=== PATIENT | female | born 1965 | race Caucasian/White ===

== ENCOUNTER 2017-12-27 18:59 | Inpatient (IN) | payer MEDICAID ==
[~2017-12-27] VITALS: Ht 167.6 cm; Wt 75.0 kg
[~2017-12-27 18:59] MED LIST: ALBU8.5H8 IH; BAC10T PO; CETI1TAB PO; GABA-338 PO; HYDR12.522 PO; HYDR25TA4 PO; IBUP-1051 PO; LISI-600 PO; PSEU-259 PO
[2017-12-27] MEDS ORDERED: normal saline 1000ML IV soln IV ONE (19:35)
[2017-12-27] MEDS: vancomycin/NS 1 GM ADD-VANTAGE 250 ML IV ONE ×2 (19:35→20:50)
[2017-12-27] MEDS ORDERED: levoFLOXACIN-Levaquin 750MG/D5 150 ML IV ONE (19:35)
[2017-12-27 20:01] LABS: BASOPHILS % (AUTO) 0.2 % (0-1); EOSINOPHILS % (AUTO) 0 % (0-6); HEMOGLOBIN 13.2 g/dl (12.0-16.0); LYMPHOCYTES # (AUTO) 0.7 X10'3 (1.1-4.8); LYMPHOCYTES % (AUTO) 4.2 % (21-51); MEAN CORPUSCULAR HEMOGLOBIN 30.3 PG (27.0-31.0); MEAN CORPUSCULAR HGB CONC 33.9 % (33.0-36.5); MEAN CORPUSCULAR VOLUME 89.4 FL (78-98); MEAN PLATELET VOLUME 8.2 FL (7.4-10.4); MONOCYTES # (AUTO) 0.8 X10'3 (0-0.9); MONOCYTES % (AUTO) 4.6 % (2-12); NEUTROPHILS # (AUTO) 15.5 X10'3 (1.8-7.7); PLATELET COUNT 211 X10'3 (140-440); RED BLOOD COUNT 4.37 X10'6 (4.20-5.60); RED CELL DISTRIBUTION WIDTH 12.7 % (11.5-14.5)
[2017-12-27 20:13] LABS: ALANINE AMINOTRANSFERASE 36 U/L (12-78); ALBUMIN/GLOBULIN RATIO 0.9 (1.1-1.5); ALKALINE PHOSPHATASE 141 IU/L (46-116); ANION GAP 9 (8-16); ASPARTATE AMINO TRANSFERASE 15 U/L (10-37); BILIRUBIN,TOTAL 0.4 MG/DL (0.1-1.0); BLOOD UREA NITROGEN 16 MG/DL (7-18); BUN/CREATININE RATIO 19.5 (6.6-38.0); CHLORIDE 97 MMOL/L (99-107); CREATININE 0.82 MG/DL (0.40-0.90); GLUCOSE 105 MG/DL (70-104); MAGNESIUM 1.6 MG/DL (1.5-2.4); POTASSIUM 3.1 MMOL/L (3.5-5.1); SODIUM 135 MMOL/L (135-145); TOTAL CARBON DIOXIDE 28.7 MMOL/L (24-32); TOTAL PROTEIN 6.5 G/DL (6.4-8.2); eGFR 73 ML/MIN
[2017-12-27 20:19] LABS: PARTIAL THROMBOPLASTIN TIME 38 SECONDS (22-32)
[2017-12-27 20:30] LABS: URINE HCG NEGATIVE (NEG)
[2017-12-27 20:32] LABS: CLARITY,URINE CLOUDY (Clear); COLOR,URINE YELLOW (Yellow); GLUCOSE, URINE NEGATIVE (Neg); KETONES,URINE 15 mg/dl (Neg); LEUKOCYTE ESTERASE ,URINE SMALL (Neg); NITRITES, URINE POSITIVE (Neg); OCCULT BLOOD,URINE MODERATE (Neg); PROTEIN,URINE 100 mg/dl (Neg); UROBILINOGEN,URINE 0.2 E.U/dL (0.2-1.0)
[2017-12-27 20:40] LABS: UA COLLECTION TYPE CLN CATCH MIDSTREAM
[2017-12-27 20:41] LABS: BACTERIA,URINE 4+ /HPF (Neg); SQUAMOUS EPITHELIAL CELL,UR FEW /LPF (FEW); WBC,URINE 20-30 /HPF (0-4)
[2017-12-27] MEDS ORDERED: temazepam 15mg capsule PO PRN (21:00)
[2017-12-27] MEDS ORDERED: vancomycin/NS 1 GM ADD-VANTAGE 250 ML IV ONE (21:00)
[2017-12-27] MEDS ORDERED: normal saline 1000ml 1,000 ML IVB ONE (21:18)
[2017-12-27] MEDS ORDERED: HYDROcodone/acetaminophen 5mg/325mg tablet PO PRN (21:20)
[2017-12-27] MEDS ORDERED: acetaminophen 650mg rectal suppository RC PRN (21:20)
[2017-12-27] MEDS ORDERED: magnesium hydroxide 30ml (MOM) UD suspension PO PRN (21:20)
[2017-12-27] MEDS ORDERED: morphine 2 MG/ML inj. syringe IV PRN ×2 (21:20)
[2017-12-27] MEDS ORDERED: mag hydrox/Alum hydrox/simeth 30ml oral suspension PO PRN (21:20)
[2017-12-27] MEDS ORDERED: metoclopramide 5 mg/ml inj IV PRN (21:20)
[2017-12-27] MEDS ORDERED: acetaminophen 325mg tablet PO PRN (21:20)
[2017-12-27] MEDS ORDERED: potassium Cl 40MEQ/NS 500ml 500 ML IV PRN ×2 (21:20)
[2017-12-27] MEDS ORDERED: diphenhydrAMINE 50 mg/ml inj IV PRN (21:20)
[2017-12-27] MEDS ORDERED: potassium Cl 20 mEq SR tablet PO PRN (21:20)
[2017-12-27] MEDS ORDERED: ondansetron/PF 4mg/2ml inj IV PRN (21:20)
[2017-12-27] MEDS ORDERED: bisacodyl 10mg suppository rectal RC PRN (21:20)
[2017-12-27] MEDS ORDERED: diphenhydrAMINE 25mg capsule PO PRN (21:20)
[2017-12-27] MEDS ORDERED: HYDROmorphone 1 mg/ml syringe IV PRN ×2 (21:20)
[2017-12-27] MEDS ORDERED: HYDROcodone/acetaminophen 10/325mg tab PO PRN (21:20)
[2017-12-27 21:44] LABS: D-DIMER 0.79 MG/L FEU (0-0.50)
[2017-12-27 21:56] LABS: LIPASE 51 U/L (73-393); PHOSPHORUS 3.2 MG/DL (2.3-4.5)
[2017-12-27] MEDS: nicotine 21mg patch - 24 hr TD SCH (22:26)
[2017-12-27] MEDS ORDERED: normal saline 500ml IV soln 500 ML IV ONE (22:45)
[2017-12-27 22:50] VITALS: BP 130/82
[2017-12-28] MEDS: potassium Cl 20 mEq SR tablet PO PRN (00:04)
[2017-12-28] MEDS: potassium Cl 20mEq in NS 1,000 ML IV SCH ×4 (01:50→23:26)
[2017-12-28] MEDS ORDERED: albuterol 2.5 MG/3 ML nebule NEB PRN (01:55)
[2017-12-28 05:14] LABS: BASOPHILS % (AUTO) 0.2 % (0-1); EOSINOPHILS % (AUTO) 0.4 % (0-6); HEMATOCRIT 33.6 % (35.0-45.0); HEMOGLOBIN 11.6 g/dl (12.0-16.0); LYMPHOCYTES # (AUTO) 1.7 X10'3 (1.1-4.8); LYMPHOCYTES % (AUTO) 14.4 % (21-51); MEAN CORPUSCULAR HEMOGLOBIN 31.3 PG (27.0-31.0); MEAN CORPUSCULAR HGB CONC 34.7 % (33.0-36.5); MEAN CORPUSCULAR VOLUME 90.4 FL (78-98); MONOCYTES # (AUTO) 0.6 X10'3 (0-0.9); MONOCYTES % (AUTO) 4.8 % (2-12); NEUTROPHILS # (AUTO) 9.6 X10'3 (1.8-7.7); NEUTROPHILS % (AUTO) 80.2 % (42-75); PLATELET COUNT 178 X10'3 (140-440); RED BLOOD COUNT 3.72 X10'6 (4.20-5.60); RED CELL DISTRIBUTION WIDTH 12.8 % (11.5-14.5); WHITE BLOOD COUNT 11.9 X10'3 (4.5-11.0)
[2017-12-28 05:30] LABS: ALANINE AMINOTRANSFERASE 27 U/L (12-78); ALBUMIN 2.3 G/DL (3.4-5.0); ALBUMIN/GLOBULIN RATIO 0.8 (1.1-1.5); ALKALINE PHOSPHATASE 115 IU/L (46-116); ANION GAP 10 (8-16); ASPARTATE AMINO TRANSFERASE 14 U/L (10-37); BILIRUBIN,TOTAL 0.5 MG/DL (0.1-1.0); BLOOD UREA NITROGEN 9 MG/DL (7-18); BUN/CREATININE RATIO 15.3 (6.6-38.0); CALCIUM 8.4 MG/DL (8.5-10.1); CHLORIDE 108 MMOL/L (99-107); CREATININE 0.59 MG/DL (0.40-0.90); GLUCOSE 100 MG/DL (70-104); POTASSIUM 3.1 MMOL/L (3.5-5.1); SODIUM 144 MMOL/L (135-145); TOTAL CARBON DIOXIDE 26.2 MMOL/L (24-32); TOTAL PROTEIN 5.3 G/DL (6.4-8.2); eGFR > 90 ML/MIN
[2017-12-28] MEDS ORDERED: potassium Cl 20 mEq SR tablet PO STA (05:56)
[2017-12-28 07:00] VITALS: BP 135/85
[2017-12-28] MEDS ORDERED: buprenorphine/naloxone 2-0.5mg sublingual tablet SL ONE (07:35)
[2017-12-28] MEDS: heparin, porcine 5000 units/ml vial SQ SCH ×2 (07:46→19:22)
[2017-12-28] MEDS: nicotine 21mg patch - 24 hr TD SCH (07:47)
[2017-12-28] MEDS: K and/or MAG REPLACEMENT MC SCH (08:00)
[2017-12-28] MEDS: docusate sod 100mg capsule PO SCH ×2 (08:00→19:23)
[2017-12-28] MEDS ORDERED: levoFLOXACIN-Levaquin 750MG/D5 150 ML IV SCH (08:00)
[2017-12-28 10:24] LABS: URINE AMPHETAMINE SCREEN POSITIVE (Neg); URINE BARBITUATE SCREEN NEGATIVE (Neg); URINE BENZODIAZEPINES SCREEN NEGATIVE (Neg); URINE CANNABINOID SCREEN POSITIVE (Neg); URINE COCAINE SCREEN NEGATIVE (Neg); URINE METHADONE SCREEN NEGATIVE (Neg); URINE OPIATE SCREEN POSITIVE (Neg); URINE PHENCYCLIDINE SCREEN NEGATIVE (Neg)
[2017-12-28 11:53] VITALS: BP 134/95
[2017-12-28] MEDS: buprenorphine/naloxone 2-0.5mg sublingual tablet SL SCH ×2 (17:00→19:22)
[2017-12-28] MEDS ORDERED: hydrOXYzine 25 MG tablet PO PRN (17:00)
[2017-12-28 18:30] VITALS: BP 177/109
[2017-12-28] MEDS ORDERED: ibuprofen 200mg tablet PO PRN (18:30)
[2017-12-28] MEDS: lactobacillus rhamnosus 10,000 MMU CELLS/CAPSULE PO SCH (19:22)
[2017-12-28 19:45] VITALS: BP 163/95
[2017-12-28] MEDS ORDERED: cloNIDine 0.1 mg tablet PO PRN (20:25)
[2017-12-28] MEDS: LORazepam 1 MG tablet PO PRN (20:51)
[2017-12-28 23:17] VITALS: BP 182/105
[2017-12-29] VITALS: BP 160/96
[2017-12-29 04:08] VITALS: BP 116/74
[2017-12-29 04:27] LABS: BASOPHILS % (AUTO) 0.5 % (0-1); EOSINOPHILS # (AUTO) 0.2 X10'3 (0-0.9); EOSINOPHILS % (AUTO) 3.2 % (0-6); HEMATOCRIT 36.8 % (35.0-45.0); LYMPHOCYTES # (AUTO) 2.5 X10'3 (1.1-4.8); LYMPHOCYTES % (AUTO) 36.4 % (21-51); MEAN CORPUSCULAR HEMOGLOBIN 29.5 PG (27.0-31.0); MEAN CORPUSCULAR HGB CONC 32.6 % (33.0-36.5); MEAN CORPUSCULAR VOLUME 90.4 FL (78-98); MEAN PLATELET VOLUME 8.1 FL (7.4-10.4); MONOCYTES # (AUTO) 0.5 X10'3 (0-0.9); MONOCYTES % (AUTO) 7.8 % (2-12); NEUTROPHILS # (AUTO) 3.5 X10'3 (1.8-7.7); NEUTROPHILS % (AUTO) 52.1 % (42-75); PLATELET COUNT 241 X10'3 (140-440); RED BLOOD COUNT 4.07 X10'6 (4.20-5.60); RED CELL DISTRIBUTION WIDTH 13.7 % (11.5-14.5); WHITE BLOOD COUNT 6.7 X10'3 (4.5-11.0)
[2017-12-29 04:43] LABS: ALANINE AMINOTRANSFERASE 25 U/L (12-78); ALBUMIN 2.2 G/DL (3.4-5.0); ALBUMIN/GLOBULIN RATIO 0.7 (1.1-1.5); ALKALINE PHOSPHATASE 111 IU/L (46-116); ANION GAP 9 (8-16); ASPARTATE AMINO TRANSFERASE 14 U/L (10-37); BILIRUBIN,TOTAL 0.3 MG/DL (0.1-1.0); BLOOD UREA NITROGEN 8 MG/DL (7-18); BUN/CREATININE RATIO 11.4 (6.6-38.0); CALCIUM 8.7 MG/DL (8.5-10.1); CHLORIDE 109 MMOL/L (99-107); GLUCOSE 86 MG/DL (70-104); POTASSIUM 3.4 MMOL/L (3.5-5.1); SODIUM 144 MMOL/L (135-145); TOTAL CARBON DIOXIDE 26.1 MMOL/L (24-32); TOTAL PROTEIN 5.2 G/DL (6.4-8.2); eGFR 88 ML/MIN
[2017-12-29 05:33] VITALS: BP 158/91
[2017-12-29 06:00] VITALS: BP 152/90
[2017-12-29] MEDS: K and/or MAG REPLACEMENT MC SCH (07:02)
[2017-12-29] MEDS: buprenorphine/naloxone 2-0.5mg sublingual tablet SL SCH (07:55)
[2017-12-29] MEDS: lactobacillus rhamnosus 10,000 MMU CELLS/CAPSULE PO SCH (07:56)
[2017-12-29] MEDS: potassium Cl 20 mEq SR tablet PO PRN ×2 (07:56→12:48)
[2017-12-29] MEDS: docusate sod 100mg capsule PO SCH (07:57)
[2017-12-29] MEDS: heparin, porcine 5000 units/ml vial SQ SCH (07:59)
[2017-12-29] MEDS: nicotine 21mg patch - 24 hr TD SCH (07:59)
[2017-12-29] MEDS ORDERED: CefTRIAXone 2gm/D5W 50ml 50 ML IV SCH (08:00)
[2017-12-29] MEDS: LORazepam 1 MG tablet PO PRN (08:14)
[2017-12-29 12:16] VITALS: BP 149/94
[2017-12-29] MEDS ORDERED: LEVO750T46 PO (13:15)
[2017-12-29] MEDS ORDERED: NICO-731 TD (13:16)
== END 2017-12-29 18:26 | disposition home or self-care (01) | DRG 720 ==
LOC: ER 19:01 → ED HOLD 21:19 → SUR 3N 22:50
PROVIDERS: ADMIT Family Medicine; ATTEND Family Medicine
DX: A41.9 Sepsis, unspecified organism (principal); J18.1 Lobar pneumonia, unspecified organism; K76.0 Fatty (change of) liver, not elsewhere classified; B96.20 Unspecified Escherichia coli [E. coli] as the cause of diseases classified elsewhere; E87.6 Hypokalemia; F11.23 Opioid dependence with withdrawal; F17.210 Nicotine dependence, cigarettes, uncomplicated; F41.9 Anxiety disorder, unspecified; I10 Essential (primary) hypertension; N39.0 Urinary tract infection, site not specified; R91.1 Solitary pulmonary nodule; Z86.14 Personal history of Methicillin resistant Staphylococcus aureus infection; Z91.018 Allergy to other foods; Z88.7 Allergy status to serum and vaccine; Z79.899 Other long term (current) drug therapy; Z56.0 Unemployment, unspecified
CPT/HCPCS: 36415; 71045; 71250; 74176; 80053; 80305; 81001; 81025; 83605; 83690; 83735; 83880; 84100; 84145; 84439; 84443; 84480; 84484; 85025; 85379; 85610; 85730; 87040; 87070; 87077; 87088; 87186; 93005; 93306; 94760; 99285; J0696; J1644; J1956; J3370; J7030; Q0177

== ENCOUNTER 2018-02-04 15:22 | Emergency (ER) | payer MEDICAID ==
[~2018-02-04] VITALS: Ht 167.6 cm; Wt 73.0 kg
[~2018-02-04 15:22] MED LIST changes: -ALBU8.5H8 IH; -BAC10T PO; -CETI1TAB PO; -GABA-338 PO; -HYDR12.522 PO; +NICO-731 TD; -PSEU-259 PO
[2018-02-04 15:35] VITALS: BP 157/100
[2018-02-04] MEDS ORDERED: SULF1TAB49 PO (16:25)
[2018-02-04] MEDS ORDERED: CEPH-572 PO (16:25)
[2018-02-04] MEDS ORDERED: TRAM50TA2 PO (16:26)
[2018-02-04] MEDS ORDERED: sulfamethoxazole/trimethoprim DS (800/160mg) tablet PO ONE (16:35)
[2018-02-04] MEDS ORDERED: cephalexin 250mg capsule PO ONE (16:35)
== END 2018-02-04 17:01 | disposition home or self-care (01) ==
LOC: ER 15:26
DX: L03.113 Cellulitis of right upper limb (principal); F11.90 Opioid use, unspecified, uncomplicated; Z79.2 Long term (current) use of antibiotics; Z79.899 Other long term (current) drug therapy; Z86.14 Personal history of Methicillin resistant Staphylococcus aureus infection; Z56.0 Unemployment, unspecified
CPT/HCPCS: 99283

== ENCOUNTER 2018-02-07 20:27 | Inpatient (IN) | payer MEDICAID ==
[~2018-02-07] VITALS: Ht 167.6 cm; Wt 68.2 kg
[~2018-02-07 20:27] MED LIST changes: +CEPH-572 PO; +SULF1TAB49 PO; +TRAM50TA2 PO
[2018-02-07] MEDS ORDERED: normal saline 1000ML IV soln IVB ONE (23:05)
[2018-02-08 00:12] LABS: BASOPHILS % (AUTO) 0.2 % (0-1); EOSINOPHILS # (AUTO) 0.4 X10'3 (0-0.9); EOSINOPHILS % (AUTO) 3.9 % (0-6); HEMATOCRIT 42.2 % (35.0-45.0); INR 0.9 INR; LYMPHOCYTES # (AUTO) 2.7 X10'3 (1.1-4.8); LYMPHOCYTES % (AUTO) 24.8 % (21-51); MEAN CORPUSCULAR HEMOGLOBIN 29.7 PG (27.0-31.0); MEAN CORPUSCULAR HGB CONC 33.2 % (33.0-36.5); MEAN CORPUSCULAR VOLUME 89.3 FL (78-98); MEAN PLATELET VOLUME 8.1 FL (7.4-10.4); MONOCYTES # (AUTO) 0.7 X10'3 (0-0.9); MONOCYTES % (AUTO) 6.2 % (2-12); NEUTROPHILS % (AUTO) 64.9 % (42-75); PARTIAL THROMBOPLASTIN TIME 31 SECONDS (22-32); PLATELET COUNT 275 X10'3 (140-440); PROTHROMBIN TIME 9.4 SECONDS (9.0-12.0); RED BLOOD COUNT 4.72 X10'6 (4.20-5.60); RED CELL DISTRIBUTION WIDTH 14.3 % (11.5-14.5); WHITE BLOOD COUNT 10.7 X10'3 (4.5-11.0)
[2018-02-08 00:24] LABS: ALANINE AMINOTRANSFERASE 22 U/L (12-78); ALBUMIN 3.2 G/DL (3.4-5.0); ALBUMIN/GLOBULIN RATIO 0.9 (1.1-1.5); ALKALINE PHOSPHATASE 124 IU/L (46-116); ANION GAP 7 (8-16); ASPARTATE AMINO TRANSFERASE 12 U/L (10-37); BILIRUBIN,TOTAL 0.2 MG/DL (0.1-1.0); BLOOD UREA NITROGEN 16 MG/DL (7-18); CALCIUM 9.8 MG/DL (8.5-10.1); CHLORIDE 100 MMOL/L (99-107); CREATININE 0.94 MG/DL (0.40-0.90); GLUCOSE 84 MG/DL (70-104); POTASSIUM 4.4 MMOL/L (3.5-5.1); SODIUM 136 MMOL/L (135-145); TOTAL CARBON DIOXIDE 28.8 MMOL/L (24-32); TOTAL PROTEIN 6.9 G/DL (6.4-8.2); eGFR 63 ML/MIN
[2018-02-08 00:28] LABS: D-DIMER 0.75 MG/L FEU (0-0.50)
[2018-02-08 00:40] LABS: URINE AMPHETAMINE SCREEN POSITIVE (Neg); URINE BARBITUATE SCREEN NEGATIVE (Neg); URINE BENZODIAZEPINES SCREEN NEGATIVE (Neg); URINE CANNABINOID SCREEN NEGATIVE (Neg); URINE COCAINE SCREEN NEGATIVE (Neg); URINE METHADONE SCREEN NEGATIVE (Neg); URINE OPIATE SCREEN POSITIVE (Neg); URINE PHENCYCLIDINE SCREEN NEGATIVE (Neg)
[2018-02-08] MEDS ORDERED: normal saline 1000ML IV soln IVB ONE (00:50)
[2018-02-08] MEDS ORDERED: vancomycin/NS 1 GM ADD-VANTAGE 250 ML IV ONE (00:50)
[2018-02-08] MEDS ORDERED: piperacillin/tazo 3.375gm/50ml 50 ML IV ONE (00:50)
[2018-02-08] MEDS: normal saline 1000ml 1,000 ML IV SCH ×3 (02:17→23:14)
[2018-02-08] MEDS ORDERED: bisacodyl 10mg suppository rectal RC PRN (02:20)
[2018-02-08] MEDS ORDERED: magnesium hydroxide 30ml (MOM) UD suspension PO PRN (02:20)
[2018-02-08] MEDS ORDERED: morphine 2 MG/ML inj. syringe IV PRN (02:20)
[2018-02-08] MEDS ORDERED: acetaminophen 325mg tablet PO PRN ×2 (02:20)
[2018-02-08] MEDS ORDERED: mag hydrox/Alum hydrox/simeth 30ml oral suspension PO PRN (02:20)
[2018-02-08] MEDS ORDERED: diphenhydrAMINE 25mg capsule PO PRN (02:20)
[2018-02-08] MEDS ORDERED: ondansetron/PF 4mg/2ml inj IV PRN (02:20)
[2018-02-08] MEDS ORDERED: diphenhydrAMINE 50 mg/ml inj IV PRN (02:20)
[2018-02-08] MEDS ORDERED: metoclopramide 5 mg/ml inj IV PRN (02:20)
[2018-02-08] MEDS: HYDROmorphone 1 mg/ml syringe IV PRN ×5 (05:10→21:41)
[2018-02-08] MEDS ORDERED: tetanus & diphtheria toxoid (Td) vaccine 0.5ml IMVAC ONE (06:10)
[2018-02-08] MEDS ORDERED: TETanus/Pertussis (Acell)/Diphther VAC/PF (Tdap-Adult) 0.5ml syringe IMVAC ONE (06:15)
[2018-02-08] MEDS: traMADol 50MG tablet PO SCH ×3 (09:19→21:33)
[2018-02-08] MEDS: piperacillin/tazo 4.5gm/100ml 100 ML IV SCH ×2 (09:19→17:31)
[2018-02-08] MEDS: pantoprazole 40mg Tablet.DR PO SCH (09:20)
[2018-02-08] MEDS: nicotine 21mg patch - 24 hr TD SCH (09:20)
[2018-02-08] MEDS: docusate sod 100mg capsule PO SCH ×2 (09:20→21:33)
[2018-02-08] MEDS: lisinopril 20mg tablet PO SCH (09:20)
[2018-02-08] MEDS ORDERED: vancomycin/NS 1 GM ADD-VANTAGE 250 ML IV SCH (12:00)
[2018-02-08] MEDS: vancomycin/NS 1 GM ADD-VANTAGE 250 ML IV SCH (13:16)
[2018-02-08 18:00] VITALS: BP 139/95
[2018-02-08] MEDS ORDERED: temazepam 15mg capsule PO PRN (21:00)
[2018-02-08] MEDS: heparin, porcine 5000 units/ml vial SQ SCH (21:34)
[2018-02-08 22:00] VITALS: BP 120/70
[2018-02-09] MEDS: piperacillin/tazo 4.5gm/100ml 100 ML IV SCH ×3 (01:03→15:36)
[2018-02-09] MEDS: traMADol 50MG tablet PO SCH ×4 (01:51→20:22)
[2018-02-09] MEDS: HYDROmorphone 1 mg/ml syringe IV PRN ×4 (01:52→23:32)
[2018-02-09] MEDS: vancomycin/NS 1 GM ADD-VANTAGE 250 ML IV SCH (02:29)
[2018-02-09 06:00] VITALS: BP 139/77
[2018-02-09 06:49] LABS: BASOPHILS % (AUTO) 0.3 % (0-1); EOSINOPHILS # (AUTO) 0.3 X10'3 (0-0.9); EOSINOPHILS % (AUTO) 4.4 % (0-6); HEMOGLOBIN 11.8 g/dl (12.0-16.0); LYMPHOCYTES % (AUTO) 31.3 % (21-51); MEAN CORPUSCULAR HEMOGLOBIN 29.1 PG (27.0-31.0); MEAN CORPUSCULAR HGB CONC 32.6 % (33.0-36.5); MEAN CORPUSCULAR VOLUME 89.3 FL (78-98); MEAN PLATELET VOLUME 8.3 FL (7.4-10.4); MONOCYTES # (AUTO) 0.4 X10'3 (0-0.9); MONOCYTES % (AUTO) 6.7 % (2-12); NEUTROPHILS # (AUTO) 3.6 X10'3 (1.8-7.7); NEUTROPHILS % (AUTO) 57.3 % (42-75); PLATELET COUNT 245 X10'3 (140-440); RED BLOOD COUNT 4.04 X10'6 (4.20-5.60); RED CELL DISTRIBUTION WIDTH 14.5 % (11.5-14.5); WHITE BLOOD COUNT 6.3 X10'3 (4.5-11.0)
[2018-02-09 07:00] LABS: ALANINE AMINOTRANSFERASE 20 U/L (12-78); ALBUMIN 2.4 G/DL (3.4-5.0); ALBUMIN/GLOBULIN RATIO 0.9 (1.1-1.5); ALKALINE PHOSPHATASE 99 IU/L (46-116); ANION GAP 8 (8-16); ASPARTATE AMINO TRANSFERASE 14 U/L (10-37); BILIRUBIN,TOTAL 0.3 MG/DL (0.1-1.0); BLOOD UREA NITROGEN 15 MG/DL (7-18); BUN/CREATININE RATIO 22.4 (6.6-38.0); CALCIUM 8.6 MG/DL (8.5-10.1); CHLORIDE 108 MMOL/L (99-107); CREATININE 0.67 MG/DL (0.40-0.90); GLUCOSE 97 MG/DL (70-104); POTASSIUM 3.8 MMOL/L (3.5-5.1); SODIUM 141 MMOL/L (135-145); TOTAL CARBON DIOXIDE 25.1 MMOL/L (24-32); eGFR > 90 ML/MIN
[2018-02-09] MEDS: heparin, porcine 5000 units/ml vial SQ SCH ×2 (08:00→20:00)
[2018-02-09] MEDS: normal saline 1000ml 1,000 ML IV SCH ×2 (08:17→13:33)
[2018-02-09] MEDS: pantoprazole 40mg Tablet.DR PO SCH (08:29)
[2018-02-09] MEDS: docusate sod 100mg capsule PO SCH ×2 (08:29→20:00)
[2018-02-09] MEDS: lisinopril 20mg tablet PO SCH (08:30)
[2018-02-09] MEDS: nicotine 21mg patch - 24 hr TD SCH (08:31)
[2018-02-09 10:00] VITALS: BP 145/94
[2018-02-09] MEDS: HYDROcodone/acetaminophen 10/325mg tab PO PRN ×2 (11:07→21:52)
[2018-02-09] MEDS ORDERED: VANCOMYCIN LEVEL IV ONE (13:30)
[2018-02-09] MEDS: lactobacillus rhamnosus 10,000 MMU CELLS/CAPSULE PO SCH (20:22)
[2018-02-09 21:00] VITALS: BP 147/91
[2018-02-10] MEDS: traMADol 50MG tablet PO SCH ×3 (02:10→15:17)
[2018-02-10] MEDS: normal saline 1000ml 1,000 ML IV SCH ×2 (02:10→14:17)
[2018-02-10] MEDS: piperacillin/tazo 4.5gm/100ml 100 ML IV SCH ×2 (02:10→09:12)
[2018-02-10] MEDS: HYDROmorphone 1 mg/ml syringe IV PRN ×2 (04:55→12:37)
[2018-02-10 06:00] VITALS: BP 149/87
[2018-02-10] MEDS: docusate sod 100mg capsule PO SCH (09:15)
[2018-02-10] MEDS: lactobacillus rhamnosus 10,000 MMU CELLS/CAPSULE PO SCH (09:15)
[2018-02-10] MEDS: lisinopril 20mg tablet PO SCH (09:16)
[2018-02-10] MEDS: pantoprazole 40mg Tablet.DR PO SCH (09:16)
[2018-02-10] MEDS: heparin, porcine 5000 units/ml vial SQ SCH (09:17)
[2018-02-10] MEDS: nicotine 21mg patch - 24 hr TD SCH ×2 (09:17→15:19)
[2018-02-10 09:42] LABS: ALANINE AMINOTRANSFERASE 22 U/L (12-78); ALBUMIN 2.7 G/DL (3.4-5.0); ALKALINE PHOSPHATASE 109 IU/L (46-116); ANION GAP 9 (8-16); ASPARTATE AMINO TRANSFERASE 17 U/L (10-37); BILIRUBIN,TOTAL 0.3 MG/DL (0.1-1.0); BLOOD UREA NITROGEN 8 MG/DL (7-18); BUN/CREATININE RATIO 11.9 (6.6-38.0); CALCIUM 8.8 MG/DL (8.5-10.1); CHLORIDE 108 MMOL/L (99-107); CREATININE 0.67 MG/DL (0.40-0.90); GLUCOSE 93 MG/DL (70-104); POTASSIUM 3.5 MMOL/L (3.5-5.1); SODIUM 141 MMOL/L (135-145); TOTAL CARBON DIOXIDE 23.8 MMOL/L (24-32); TOTAL PROTEIN 5.5 G/DL (6.4-8.2); eGFR > 90 ML/MIN
[2018-02-10 09:55] LABS: BASOPHILS % (AUTO) 0.6 % (0-1); EOSINOPHILS # (AUTO) 0.2 X10'3 (0-0.9); EOSINOPHILS % (AUTO) 2.9 % (0-6); HEMATOCRIT 38.2 % (35.0-45.0); HEMOGLOBIN 12.7 g/dl (12.0-16.0); LYMPHOCYTES # (AUTO) 1.9 X10'3 (1.1-4.8); LYMPHOCYTES % (AUTO) 25.5 % (21-51); MEAN CORPUSCULAR HEMOGLOBIN 29.7 PG (27.0-31.0); MEAN CORPUSCULAR HGB CONC 33.1 % (33.0-36.5); MEAN CORPUSCULAR VOLUME 89.6 FL (78-98); MEAN PLATELET VOLUME 8.1 FL (7.4-10.4); MONOCYTES # (AUTO) 0.4 X10'3 (0-0.9); MONOCYTES % (AUTO) 5.7 % (2-12); NEUTROPHILS # (AUTO) 4.9 X10'3 (1.8-7.7); NEUTROPHILS % (AUTO) 65.3 % (42-75); PLATELET COUNT 253 X10'3 (140-440); RED BLOOD COUNT 4.27 X10'6 (4.20-5.60); RED CELL DISTRIBUTION WIDTH 14.3 % (11.5-14.5); WHITE BLOOD COUNT 7.6 X10'3 (4.5-11.0)
[2018-02-10] MEDS: HYDROcodone/acetaminophen 10/325mg tab PO PRN ×2 (11:25→15:48)
[2018-02-10 11:30] VITALS: BP 158/95
[2018-02-10] MEDS ORDERED: PANT40TA4 PO (14:47)
[2018-02-10] MEDS ORDERED: LINE600T36 PO (14:47)
[2018-02-10] MEDS ORDERED: LACT1CAP26 PO (14:47)
[2018-02-11] MEDS ORDERED: VANCOMYCIN LEVEL IV ONE (03:30)
== END 2018-02-10 17:45 | disposition home or self-care (01) | DRG 351 ==
LOC: ER 20:27 → ED HOLD 02-08 02:17 → ORTHO 4S 02-08 07:50
PROVIDERS: ADMIT Family Medicine; ATTEND Family Medicine
DX: M65 Synovitis and tenosynovitis (principal); F11.10 Opioid abuse, uncomplicated; L03.113 Cellulitis of right upper limb; J40 Bronchitis, not specified as acute or chronic; M71.021 Abscess of bursa, right elbow; L02.413 Cutaneous abscess of right upper limb; F15.19 Other stimulant abuse with unspecified stimulant-induced disorder; F17.210 Nicotine dependence, cigarettes, uncomplicated; Z71.6 Tobacco abuse counseling; Z85.72 Personal history of non-Hodgkin lymphomas; Z86.14 Personal history of Methicillin resistant Staphylococcus aureus infection; Z91.19 Patient's noncompliance with other medical treatment and regimen; Z98.891 History of uterine scar from previous surgery; Z56.0 Unemployment, unspecified; Z88.7 Allergy status to serum and vaccine; Z91.018 Allergy to other foods
CPT/HCPCS: 36415; 73070; 73100; 73120; 80053; 80202; 80305; 83605; 84145; 85025; 85379; 85610; 85651; 85730; 87040; 87070; 90715; 96365; 96367; 99285; G0378; J1170; J1644; J2543; J3370; J7030

== ENCOUNTER 2019-05-29 12:17 | Emergency (ER) | payer MEDICAID ==
[~2019-05-29] VITALS: Ht 167.6 cm; Wt 71.3 kg
[~2019-05-29 12:17] MED LIST changes: -CEPH-572 PO; -IBUP-1051 PO; +LACT1CAP26 PO; -NICO-731 TD; +PANT40TA4 PO; -SULF1TAB49 PO; -TRAM50TA2 PO
[2019-05-29 12:58] VITALS: BP 151/101
[2019-05-29 13:21] LABS: BASOPHILS # (AUTO) 0.1 X10'3 (0-0.2); BASOPHILS % (AUTO) 0.3 % (0-1); EOSINOPHILS # (AUTO) 0.1 X10'3 (0-0.9); EOSINOPHILS % (AUTO) 0.7 % (0-6); HEMATOCRIT 38.3 % (35.0-45.0); HEMOGLOBIN 12.8 g/dl (12.0-16.0); LYMPHOCYTES # (AUTO) 1.8 X10'3 (1.1-4.8); LYMPHOCYTES % (AUTO) 9.3 % (21-51); MEAN CORPUSCULAR HEMOGLOBIN 29.1 PG (27.0-31.0); MEAN CORPUSCULAR HGB CONC 33.5 g/dL (33.0-36.5); MEAN CORPUSCULAR VOLUME 86.8 FL (78-98); MEAN PLATELET VOLUME 8.1 FL (7.4-10.4); MONOCYTES # (AUTO) 1.3 X10'3 (0-0.9); MONOCYTES % (AUTO) 6.8 % (2-12); NEUTROPHILS # (AUTO) 15.8 X10'3 (1.8-7.7); NEUTROPHILS % (AUTO) 82.9 % (42-75); PLATELET COUNT 316 X10'3 (140-440); RED BLOOD COUNT 4.42 X10'6 (4.20-5.60); RED CELL DISTRIBUTION WIDTH 14.3 % (11.5-14.5); WHITE BLOOD COUNT 19.1 X10'3 (4.5-11.0)
[2019-05-29 13:34] LABS: ALANINE AMINOTRANSFERASE 14 U/L (12-78); ALBUMIN 2.7 G/DL (3.4-5.0); ALBUMIN/GLOBULIN RATIO 0.8 (1.1-1.5); ALKALINE PHOSPHATASE 110 IU/L (46-116); ANION GAP 10 (8-16); ASPARTATE AMINO TRANSFERASE 12 U/L (10-37); BILIRUBIN,TOTAL 0.3 MG/DL (0.1-1.0); BLOOD UREA NITROGEN 12 MG/DL (7-18); BUN/CREATININE RATIO 20.3 (6.6-38.0); CHLORIDE 102 MMOL/L (99-107); CREATININE 0.59 MG/DL (0.40-0.90); GLUCOSE 103 MG/DL (70-104); POTASSIUM 3.5 MMOL/L (3.5-5.1); SODIUM 136 MMOL/L (135-145); TOTAL CARBON DIOXIDE 24.4 MMOL/L (24-32); TOTAL PROTEIN 6.3 G/DL (6.4-8.2); eGFR > 90 ML/MIN
[2019-05-29] MEDS ORDERED: CefTRIAXone 1000mg IM Kit (w/lidocaine diluent) IM ONE (15:40)
[2019-05-29] MEDS ORDERED: azithromycin 250mg tablet PO ONE (15:40)
[2019-05-29] MEDS ORDERED: AZIT-63 PO (15:46)
[2019-05-29] MEDS ORDERED: AMOX500C2 PO (15:46)
== END 2019-05-29 16:02 | disposition home or self-care (01) ==
LOC: ER 12:18
DX: J18.9 Pneumonia, unspecified organism (principal); F11.90 Opioid use, unspecified, uncomplicated; Z72.0 Tobacco use; Z86.14 Personal history of Methicillin resistant Staphylococcus aureus infection; Z56.0 Unemployment, unspecified; Z98.890 Other specified postprocedural states; Z79.2 Long term (current) use of antibiotics; Z79.899 Other long term (current) drug therapy
CPT/HCPCS: 71046; 80053; 83605; 85025; 87040; 96372; 99284; J0696

== ENCOUNTER 2019-11-22 22:15 | Emergency (ER) | payer MEDICAID ==
[~2019-11-22] VITALS: Ht 167.6 cm; Wt 75.0 kg
[~2019-11-22 22:15] MED LIST changes: -PANT40TA4 PO; +PANT40TA54 PO
[2019-11-22] MEDS ORDERED: DOXYCYCLINE 100MG CAPSULE PO STA (22:27)
[2019-11-22] MEDS ORDERED: DOXY100C43 PO (22:36)
[2019-11-22 22:51] VITALS: BP 155/100
== END 2019-11-22 22:53 | disposition home or self-care (01) ==
LOC: ER 22:16
DX: L03.317 Cellulitis of buttock (principal); I10 Essential (primary) hypertension; F17.200 Nicotine dependence, unspecified, uncomplicated; Z86.14 Personal history of Methicillin resistant Staphylococcus aureus infection; Z98.890 Other specified postprocedural states; Z56.0 Unemployment, unspecified
CPT/HCPCS: 99284

== ENCOUNTER 2020-09-29 19:06 | Emergency (ER) | payer MEDICAID ==
[~2020-09-29] VITALS: Ht 167.6 cm; Wt 72.7 kg
[~2020-09-29 19:06] MED LIST changes: -LISI-600 PO; +LISI20TA28 PO
[2020-09-29] MEDS ORDERED: acetaminophen 325mg tablet PO ONE (19:20)
[2020-09-29 19:44] LABS: BASOPHILS % (AUTO) 0.2 % (0-1); EOSINOPHILS % (AUTO) 0.3 % (0-6); HEMATOCRIT 42.2 % (35.0-45.0); HEMOGLOBIN 14.3 g/dl (12.0-16.0); LYMPHOCYTES # (AUTO) 1.1 X10'3 (1.1-4.8); LYMPHOCYTES % (AUTO) 8.1 % (21-51); MEAN CORPUSCULAR HEMOGLOBIN 29.8 PG (27.0-31.0); MEAN CORPUSCULAR HGB CONC 33.9 g/dL (33.0-36.5); MEAN CORPUSCULAR VOLUME 87.7 FL (78-98); MEAN PLATELET VOLUME 8.8 FL (7.4-10.4); MONOCYTES % (AUTO) 7.9 % (2-12); NEUTROPHILS # (AUTO) 10.8 X10'3 (1.8-7.7); NEUTROPHILS % (AUTO) 83.5 % (42-75); PLATELET COUNT 159 X10'3 (140-440); RED BLOOD COUNT 4.81 X10'6 (4.20-5.60); RED CELL DISTRIBUTION WIDTH 13.9 % (11.5-14.5)
[2020-09-29 20:00] LABS: ALANINE AMINOTRANSFERASE 42 U/L (12-78); ALBUMIN 3.3 G/DL (3.4-5.0); ALBUMIN/GLOBULIN RATIO 1.1 (1.1-1.5); ALKALINE PHOSPHATASE 109 IU/L (46-116); ANION GAP 9 (8-16); ASPARTATE AMINO TRANSFERASE 30 U/L (10-37); BILIRUBIN,TOTAL 0.6 MG/DL (0.1-1.0); BLOOD UREA NITROGEN 12 MG/DL (7-18); BUN/CREATININE RATIO 18.5 (6.6-38.0); CALCIUM 8.4 MG/DL (8.5-10.1); CHLORIDE 97 MMOL/L (99-107); CREATININE 0.65 MG/DL (0.40-0.90); GLUCOSE 104 MG/DL (70-104); POTASSIUM 3.4 MMOL/L (3.5-5.1); SODIUM 135 MMOL/L (135-145); TOTAL PROTEIN 6.4 G/DL (6.4-8.2); eGFR > 90 ML/MIN
[2020-09-29 20:12] VITALS: BP 106/69
[2020-09-29] MEDS ORDERED: SULF1TAB49 PO (20:23)
== END 2020-09-29 20:41 | disposition home or self-care (01) ==
LOC: ER 19:08
DX: S20.212A Contusion of left front wall of thorax, initial encounter (principal); L02.01 Cutaneous abscess of face; R06.02 Shortness of breath; R07.81 Pleurodynia; E87.6 Hypokalemia; I10 Essential (primary) hypertension; F11.90 Opioid use, unspecified, uncomplicated; Z87.01 Personal history of pneumonia (recurrent); Z86.14 Personal history of Methicillin resistant Staphylococcus aureus infection; Z98.890 Other specified postprocedural states; Z56.0 Unemployment, unspecified; Z79.2 Long term (current) use of antibiotics; Z79.899 Other long term (current) drug therapy; X58.XXXA Exposure to other specified factors, initial encounter; Y93.89 Activity, other specified; Y92.89 Other specified places as the place of occurrence of the external cause; Y99.8 Other external cause status
CPT/HCPCS: 36415; 71045; 80053; 83605; 84145; 85025; 87040; 99284

== ENCOUNTER 2020-10-13 13:25 | Emergency (ER) | payer MEDICAID ==
[~2020-10-13] VITALS: Ht 167.6 cm; Wt 72.7 kg
[2020-10-13] MEDS ORDERED: vancomycin/NS 1 GM ADD-VANTAGE 250 ML IV ONE (18:10)
[2020-10-13] MEDS ORDERED: HYDROcodone/acetaminophen 10/325mg tab PO ONE (18:10)
[2020-10-13] MEDS ORDERED: ondansetron 4mg rapidly disintigrating tab PO ONE (18:10)
[2020-10-13] MEDS ORDERED: normal saline 1000ML IV soln IV ONE (18:10)
[2020-10-13] MEDS ORDERED: CefTRIAXone 2gm/D5W 50ml BAG 50 ML IV ONE (18:10)
[2020-10-13 19:21] LABS: BASOPHILS # (AUTO) 0.1 X10'3 (0-0.2); BASOPHILS % (AUTO) 0.3 % (0-1); EOSINOPHILS # (AUTO) 0.4 X10'3 (0-0.9); EOSINOPHILS % (AUTO) 2.8 % (0-6); HEMATOCRIT 37.8 % (35.0-45.0); HEMOGLOBIN 12.8 g/dl (12.0-16.0); LYMPHOCYTES # (AUTO) 2.5 X10'3 (1.1-4.8); LYMPHOCYTES % (AUTO) 16.8 % (21-51); MEAN CORPUSCULAR HEMOGLOBIN 29.8 PG (27.0-31.0); MEAN CORPUSCULAR HGB CONC 33.9 g/dL (33.0-36.5); MEAN CORPUSCULAR VOLUME 87.9 FL (78-98); MEAN PLATELET VOLUME 7.6 FL (7.4-10.4); MONOCYTES # (AUTO) 1.1 X10'3 (0-0.9); NEUTROPHILS % (AUTO) 73.1 % (42-75); PLATELET COUNT 371 X10'3 (140-440); RED CELL DISTRIBUTION WIDTH 14.3 % (11.5-14.5)
[2020-10-13] MEDS ORDERED: TETanus/Pertussis (Acell)/Diphther VAC/PF (Tdap-Adult) 0.5ml syringe IMVAC ONE (19:30)
[2020-10-13] MEDS ORDERED: LIDOcaine 1% W/epiNEPHrine 1:200,000 10ml vial IJ ONE (19:30)
[2020-10-13 19:37] LABS: ALANINE AMINOTRANSFERASE 15 U/L (12-78); ALBUMIN/GLOBULIN RATIO 0.9 (1.1-1.5); ALKALINE PHOSPHATASE 119 IU/L (46-116); ANION GAP 8 (8-16); ASPARTATE AMINO TRANSFERASE 9 U/L (10-37); BILIRUBIN,TOTAL 0.3 MG/DL (0.1-1.0); BLOOD UREA NITROGEN 19 MG/DL (7-18); BUN/CREATININE RATIO 20.4 (6.6-38.0); CALCIUM 9.1 MG/DL (8.5-10.1); CHLORIDE 102 MMOL/L (99-107); CREATININE 0.93 MG/DL (0.40-0.90); GLUCOSE 90 MG/DL (70-104); POTASSIUM 3.2 MMOL/L (3.5-5.1); SODIUM 139 MMOL/L (135-145); TOTAL PROTEIN 6.3 G/DL (6.4-8.2); eGFR 63 ML/MIN
[2020-10-13] MEDS ORDERED: LORazepam 2 mg/ml vial IV ONE (20:05)
[2020-10-13] MEDS ORDERED: SULF1TAB45 PO (21:06)
[2020-10-13] MEDS ORDERED: CEPH250T PO (21:06)
[2020-10-13] MEDS ORDERED: potassium Cl 20 mEq SR tablet PO ONE (21:10)
[2020-10-13 21:20] VITALS: BP 120/70
== END 2020-10-13 21:22 | disposition home or self-care (01) ==
LOC: ER 13:26
DX: L02.612 Cutaneous abscess of left foot (principal); L02.01 Cutaneous abscess of face; M79.672 Pain in left foot; I10 Essential (primary) hypertension; F11.90 Opioid use, unspecified, uncomplicated; Z87.01 Personal history of pneumonia (recurrent); Z86.14 Personal history of Methicillin resistant Staphylococcus aureus infection; Z98.890 Other specified postprocedural states; Z56.0 Unemployment, unspecified; Z79.2 Long term (current) use of antibiotics; Z79.899 Other long term (current) drug therapy
CPT/HCPCS: 10060; 36415; 73630; 80053; 83605; 84145; 85025; 87040; 90715; 96365; 96366; 96368; 96375; 99284; J0696; J2060; J3370; J7030